=== PATIENT | female | born 1960 | race Two or more races ===

== ENCOUNTER 2019-09-10 13:32 | Emergency (ER) | payer MEDICAID ==
[~2019-09-10] VITALS: Ht 152.4 cm; Wt 77.1 kg
[~2019-09-10 13:32] MED LIST: NO HOME MEDS
[2019-09-10] MEDS ORDERED: Ketorolac 30mg Inj IM ONE (14:00)
[2019-09-10] MEDS ORDERED: Methocarbamol 750mg tab ORAL ONE (14:00)
[2019-09-10 14:05] VITALS: BP 129/77
[2019-09-10 14:48] LABS: APPEARANCE,URINE CLEAR; BILIRUBIN, URINE NEGATIVE (NEGATIVE); COLOR,URINE PALE YELLOW; GLUCOSE, URINE (UA) NEGATIVE (NEGATIVE); KETONES,URINE NEGATIVE (NEGATIVE); LEUKOCYTE ESTERASE ,URINE NEGATIVE (NEGATIVE); NITRITE,URINE NEGATIVE (NEGATIVE); PH,URINE 6 (4.5-8.0); PROTEIN,URINE 2+ (NEGATIVE); UROBILINOGEN,URINE NORMAL MG/DL (0.0-1.0)
--- NOTE | 2019-09-10 14:53 | Diagnostic Imaging Report ---
EXAM: CT Pelvis Without Intravenous Contrast CLINICAL HISTORY: TRAUMA TECHNIQUE: Axial computed tomography images of the pelvis without intravenous contrast. CTDI is 10.4 mGy and DLP is 318.3 mGy-cm. One or more of the following dose reduction techniques were used: automated exposure control, adjustment of the mA and/or kV according to patient size, use of iterative reconstruction technique. COMPARISON: CT abdomen/pelvis on 12/14/2011 FINDINGS: Bowel: Mild diverticulosis without visualized diverticulitis. No obstruction. Appendix: Prior appendectomy. Intraperitoneal space: Unremarkable. No free air. No significant fluid collection. Bladder: Mild prominence of the bladder wall is nonspecific. Please correlate with urinalysis if concerned for cystitis. No stones. Reproductive: Possible uterine fibroids. Bones/joints: No acute fracture or dislocation. Probable small bone islands in the proximal left femur. Soft tissues: Small fat-containing umbilical hernia. Vasculature: Atherosclerotic changes of the vasculature. No lower abdominal aortic aneurysm. Lymph nodes: Unremarkable. No enlarged lymph nodes. IMPRESSION: No acute fracture or dislocation.
--- NOTE | 2019-09-10 15:08 | Emergency Room Report ---
History of Present Illness General Chief Complaint: Back Pain-No Injury Source: Patient Present Illness HPI 59-year-old female with no signal past medical history here complaining of 1 day of sudden onset of right lower back and buttocks pain radiating to right leg. Denies any tingling numbness. Rates the pain 7 out of 10 with radiation to right leg. Has not taken medication for symptom relief. Denies any fall or injury. Denies lifting any heavy objects. Denies urinary frequency and urgency and hematuria. Denies any history of arthritis or neuropathy. Denies chest pain, shortness of breath, headache and dizziness. Allergies: Coded Allergies: No Known Allergies (Verified Allergy, Mild, 12/17/05) COVID-19 Screening Contact w/high risk pt: No Experienced COVID-19 symptoms?: No COVID-19 Testing performed [employer]: No Patient History Past Medical History: see triage record Past Surgical History: none Pertinent Family History: none Last Menstrual Period: n/a Now: No Reviewed Nursing Documentation: PMH: Agreed; PSxH: Agreed Nursing Documentation-PMH Past Medical History: No Stated History Hx Cardiac Problems: No Hx Cancer: No Hx Gastrointestinal Problems: No Hx Neurological Problems: No Review of Systems All Other Systems: negative except mentioned in HPI Physical Exam Vital Signs Date Time Temp Pulse Resp B/P (MAP) Pulse Ox O2 Delivery O2 Flow Rate FiO2 09/10/19 13:43 98.2 67 18 129/77 (94) 98 Room Air Sp02 EP Interpretation: reviewed, normal General Appearance: no apparent distress, alert, GCS 15, non-toxic Head: normocephalic, atraumatic Eyes: bilateral eye normal inspection, bilateral eye PERRL ENT: hearing grossly normal, normal pharynx, no angioedema, normal voice Neck: full range of motion, supple/symm/no masses Respiratory: chest non-tender, lungs clear, normal breath sounds, no rhonchi, no retraction, no wheezing, speaking full sentences Cardiovascular #1: regular rate, rhythm, no edema, no murmur Cardiovascular #2: 2+ dorsalis pedis (R), 2+ dorsalis pedis (L) Gastrointestinal: normal bowel sounds, non tender, soft, non-distended, no guarding, no rebound Rectal: deferred Genitourinary: no CVA tenderness Musculoskeletal: back normal, no calf tenderness, pelvis stable, gait/station normal, Melony's Sign negative Neurologic: alert, motor strength/tone normal, oriented x3, sensory intact, responsive, speech normal Psychiatric: judgement/insight normal, memory normal, mood/affect normal, no suicidal/homicidal ideation Skin: no rash Lymphatic: no adenopathy Medical Decision Making PA Attestation All diagnosis and treatment plans were discussed and reviewed by my supervising physician Dr. Mitchell Diagnostic Impression: Primary Impression: Sciatic leg pain ER Course 59-year-old female with no signal past medical history here complaining of 1 day of sudden onset of right lower back and buttocks pain radiating to right leg. Denies any tingling numbness. Rates the pain 7 out of 10 with radiation to right leg. Has not taken medication for symptom relief. Denies any fall or injury. Denies lifting any heavy objects. Denies urinary frequency and urgency and hematuria. Denies any history of arthritis or neuropathy. Denies chest pain, shortness of breath, headache and dizziness. Ddx considered but are not limited to: Lumbar spine sprain, strain, fracture, contusion, neuropathy Vital signs: are WNL, pt. is afebrile H&PE are most consistent with: Sciatic pain ORDERS: Pelvic CT no contrast, Robaxin, Motrin, UA ER intervention: Toradol, Robaxin DISCHARGE: At this time pt. is stable for d/c to home. Will provide printed patient care instructions, and any necessary prescriptions. Care plan and follow up instructions have been discussed with the patient prior to discharge. Patient as directed, follow-up primary care provider, follow-up with sports specialist, if worsening symptoms return to the emergency room CT/MRI/US Diagnostic Results CT/MRI/US Diagnostic Results : Imaging Test Ordered: CT pelvis no contrast Impression COMPARISON: CT abdomen/pelvis on 12/14/2011 FINDINGS: Bowel: Mild diverticulosiswithout visualized diverticulitis. No obstruction. Appendix: Prior appendectomy. Intraperitoneal space:Unremarkable. No free air. No significant fluid collection. Bladder: Mild prominence of the bladder wall is nonspecific. Please correlate with urinalysis if concerned for cystitis. No stones. Reproductive: Possible uterine fibroids. Bones/joints:No acute fracture or dislocation. Probable small bone islands in the proximal left femur. Soft tissues: Small fat-containing umbilical hernia. Vasculature:Atherosclerotic changes of the vasculature. No lower abdominal aortic aneurysm. Lymph nodes:Unremarkable. No enlarged lymph nodes. IMPRESSION: No acute fracture or dislocation. Last Vital Signs Date Time Temp Pulse Resp B/P (MAP) Pulse Ox O2 Delivery O2 Flow Rate FiO2 09/10/19 13:43 98.2 67 18 129/77 (94) 98 Room Air Disposition: HOME, SELF-CARE Condition: Stable Scripts Ibuprofen* (MOTRIN*) 600 Mg Tablet 600 MG ORAL Q8H PRN for FOR PAIN, #30 TAB 0 Refills Prov: Ronnie Stevens 09/10/19 Methocarbamol* (ROBAXIN-750*) 750 Mg Tablet 750 MG PO TID, #21 TAB 0 Refills Prov: Ronnie Stevens 09/10/19 Referrals: NON PHYSICIAN (PCP) Patient Instructions: Back Pain, Adult, Sciatica Additional Instructions: Take medication as directed, follow-up with your primary care provider, if worsening symptoms return to the emergency room Ronnie Stevens Sep 10, 2019 15:08
[2019-09-10] MEDS ORDERED: IBUPROFEN600 M1 ORAL (15:09)
[2019-09-10] MEDS ORDERED: ROBAXIN-750750 MG PO (15:09)
[2019-09-10 15:19] VITALS: BP 129/77
== END 2019-09-10 15:19 | disposition home or self-care (01) ==
LOC: EMR 14:07
DX: M54.30 Sciatica, unspecified side (principal); K57.90 Diverticulosis of intestine, part unspecified, without perforation or abscess without bleeding; Z90.89 Acquired absence of other organs; K42.9 Umbilical hernia without obstruction or gangrene
CPT/HCPCS: 72192; 81003; 96372; J1885; Z7502; 99284